=== PATIENT | female | born 1985 | race Caucasian/White ===

== ENCOUNTER → 2022-01-24 | Outpatient (CLI) | payer BC ==
[2022-01-24 14:40] VITALS: BP 124/85; PULSE 114; RESP 16; TEMP 98.2; BMI 29.7
--- NOTE | 2022-01-24 15:02 | P.BASOAP ---
Subjective Progress Note Date: 01/24/22 Principal diagnosis: Morbid obesity 36-year-old female presents for the first time to our clinic. Had [place] [address] Fernández in [place]. Patient says she is not sure how much fluid is in her band. Feels looser lately. Eating more. Has ad dysphagia symptoms to dry meats such as ribs and some vegetables such as broccoli. Patient denies heartburn. [id number] weight was 320. Her lowest weight was 157. Today she is 184. Objective - Vital Signs Vital signs: Vital Signs Temp 98.2 F 01/24/22 14:35 Pulse 114 H 01/24/22 14:35 Resp 16 01/24/22 14:35 BP 124/85 01/24/22 14:35 Pulse Ox FiO2 Intake & Output 01/23/22 01/24/22 01/24/22 18:59 06:59 18:59 Weight 83.518 kg - Exam Abdomen: Soft, nontender, nondistended Assessment/Plan (1) Morbid obesity Narrative/Plan: 36-year-old female here today for LAP-BAND evaluation. Patient would like fluid added to her band. The patient's lap band port was palpated. The site was aseptically prepped. The patient's port was mobile beneath the skin and did not feel sutured to the fascia. It was standing somewhat upright. The skin was localized with lidocaine. The [place] needle was advanced into the port without difficulty. The port was first aspirated for 3 mL of saline. A total of 0.5 ml of fluid was then added for a total of 3.5. Pressure was held and a sterile dressing was applied. Plan: Date: 01/24/22 Initial Weight: 134.717 kg Initial BMI: 47.9 Current Weight: 83.518 kg Current BMI: 29.7 Type of Surgery: Adjustable Gastric Banding Total Volume in Band: 3.5 Previous Volume: 3.0 Volume Removed: Volume Added: 0.5 Band Size:
== END | disposition home or self-care (01) ==
LOC: BARWHC3 13:59
PROVIDERS: ATTEND Surgery
DX: E66.01 Morbid (severe) obesity due to excess calories (principal); Z68.29 Body mass index [BMI] 29.0-29.9, adult
CPT/HCPCS: 99202

== ENCOUNTER → 2022-06-12 | Outpatient (CLI) | payer BC ==
[2022-06-13 00:24] LABS: African American GFR (CKD) 133.7 (60.0-200.0); Albumin 4.4 g/dL (3.8-4.9); Albumin/Globulin Ratio 1.82 (1.60-3.17); Anion Gap 12.3 mmol/L (10.00-18.00); BUN/Creat Ratio 9.15 Ratio (12.00-20.00); Blood Urea Nitrogen 5.4 mg/dL (9.0-27.0); Globulin 2.4 g/dL (1.6-3.3); Non-African American GFR(CKD) 115.4 (60.0-200.0); T4, Free (Free Thyroxine) 1.05 ng/dL (0.800-1.800); Total Bilirubin 1.2 mg/dL (0.30-1.20); Total Protein 6.8 g/dL (6.2-8.2)
== END | disposition home or self-care (01) ==
LOC: LABWHC1 16:10
PROVIDERS: ATTEND Nurse Practitioner Acute Care
DX: G43.909 Migraine, unspecified, not intractable, without status migrainosus (principal); E55.9 Vitamin D deficiency, unspecified; E53.9 Vitamin B deficiency, unspecified; R42 Dizziness and giddiness
CPT/HCPCS: 36415; 80053; 82306; 82607; 84207; 84439; 84443; 84481; 85025

== ENCOUNTER 2023-01-22 16:01 | Observation (INO) | payer BC ==
[2023-01-22] MEDS ORDERED: SODIUM CHLORIDE 0.9% 1,000 ML IV STA (16:47)
[2023-01-22 17:17] LABS: Anisocytosis Slight; HCT 24.8 % (34.0-46.0); Hypochromasia Marked; MCH 13.9 pg (25.0-35.0); MCHC 25.2 g/dL (31.0-37.0); MCV 55.2 fL (80.0-100.0); Mean Platelet Volume 6.7; Microcytosis Marked; Platelet Count 304 k/uL (150-450); RBC 4.49 m/uL (3.80-5.40); RDW 19.5 % (11.5-15.5); WBC 3.8 k/uL (3.8-10.6)
[2023-01-22 17:27] LABS: ALT 12 U/L (4-34); AST 21 U/L (14-36); African American GFR (CKD) >90 (>60 ml/min/1.73 sqM); Albumin 4.3 g/dL (3.5-5.0); Alkaline Phosphatase 57 U/L (38-126); Anion Gap 10 mmol/L; Blood Urea Nitrogen 6 mg/dL (7-17); Calcium 8.9 mg/dL (8.4-10.2); Carbon Dioxide 25 mmol/L (22-30); Chloride 101 mmol/L (98-107); Glucose 96 mg/dL (74-99); Non-African American GFR(CKD) >90 (>60 ml/min/1.73 sqM); Potassium 4.2 mmol/L (3.5-5.1); Sodium 136 mmol/L (137-145); Total Protein 7.1 g/dL (6.3-8.2)
[2023-01-22 17:31] LABS: HGB 6.2 gm/dL (11.4-16.0)
[2023-01-22 18:03] LABS: Eosinophils # (M) 0.19 k/uL (0-0.7); Lymphocytes # (M) 1.44 k/uL (1.0-4.8); Monocytes # (M) 0.19 k/uL (0-1.0); Neutrophils # (M) 1.98 k/uL (1.3-7.7); Neutrophils % (M) 52 %; Nucleated Red Blood Cells 0 /100 WBC (0-0); Total Cells Counted 100
[2023-01-22 18:04] LABS: Ovalocytes Present; Tear Drop Cells Present
--- NOTE | 2023-01-22 18:05 | ED ---
General Adult HPI - General Chief complaint: Recheck/Abnormal Lab/Rx Stated complaint: Abnormal Labs Time Seen by Provider: 01/22/23 16:46 Source: patient Mode of arrival: ambulatory Limitations: no limitations - History of Present Illness Initial comments: Patient is a 37-year-old female presents to the emergency department for abnormal labs. Patient has history of iron deficiency anemia secondary to heavy menstrual cycles. She has history of bariatric surgery therefore takes iron vitamins. Patient had routine blood work drawn at her primary care providers office on 01/18/23. She received a call stating her hemoglobin was 5.5 and instructed to go to the emergency department. Patient is afraid of needles she was too anxious to come in for evaluation. Her family convinced her today and patient came in for evaluation. She is currently asymptomatic no weakness, fatigue, shortness of breath, chest pain, lightheadedness or dizziness. States her menstrual cycle ended 2 days ago. She denies any abnormal bleeding, blood in stool, blood in urine. - Related Data Home Medications Medication Instructions Recorded Confirmed No Known Home Medications 01/24/22 01/24/22 Allergies Allergy/AdvReac Type Severity Reaction Status Date / Time codeine Allergy Vomiting Verified 01/22/23 16:14 Review of Systems ROS Statement: Those systems with pertinent positive or pertinent negative responses have been documented in the HPI. ROS Other: All systems not noted in ROS Statement are negative. Past Medical History Past Medical History: No Reported History History of Any Multi-Drug Resistant Organisms: None Reported Past Surgical History: Appendectomy, Bariatric Surgery Additional Past Surgical History / Comment(s): lap band 2010 Past Anesthesia/Blood Transfusion Reactions: No Reported Reaction Past Psychological History: No Psychological Hx Reported Smoking Status: Never smoker, Unknown if ever smoked General Exam Limitations: no limitations General appearance: alert Head exam: Present: atraumatic, normocephalic, normal inspection Eye exam: Present: normal appearance, PERRL, EOMI. Absent: scleral icterus, conjunctival injection, periorbital swelling Respiratory exam: Present: normal lung sounds bilaterally. Absent: respiratory distress, wheezes, rales, rhonchi, stridor Cardiovascular Exam: Present: regular rate, normal rhythm, normal heart sounds. Absent: systolic murmur, diastolic murmur, rubs, gallop, clicks GI/Abdominal exam: Present: soft, normal bowel sounds. Absent: distended, tenderness, guarding, rebound, rigid Skin exam: Present: warm, dry, intact, pallor. Absent: normal color, rash Course Vital Signs 01/22/23 01/22/23 16:10 17:01 Temperature 98.5 F Pulse Rate 97 79 Respiratory 18 18 Rate Blood Pressure 114/79 109/58 O2 Sat by Pulse 100 100 Oximetry Medical Decision Making - Medical Decision Making Was pt. sent in by a medical professional or institution (FEDERICO Harris, TATTOO AND BODY ARTIST, urgent care, hospital, or longterm...) When possible be specific @ -No Did you speak to anyone other than the patient for history (EMS, parent, family, police, friend...)? What history was obtained from this source @ -No Did you review nursing and triage notes (agree or disagree)? Why? @ -I reviewed and agree with nursing and triage notes Were old charts reviewed (outside hosp., previous admission, EMS record, old EKG, old radiological studies, urgent care reports/EKG's, longterm records)? Report findings @ -No old charts were reviewed Differential Diagnosis (chest pain, altered mental status, abdominal pain women, abdominal pain men, vaginal bleeding, weakness, fever, dyspnea, syncope, headache, dizziness, GI bleed, back pain, seizure, CVA, palpatations, mental health)? @ -acute blood loss, GI bleed, anemia of chronic disease, hemolytic anemia. This list is not meant to be all-inclusive EKG interpreted by me (3pts min.). @ -None X-rays interpreted by me (1pt min.). @ -None done CT interpreted by me (1pt min.). @ -None done U/S interpreted by me (1pt. min.). @ -None done What testing was considered but not performed or refused? (CT, X-rays, U/S, labs)? Why? @ -None What meds were considered but not given or refused? Why? @ -None Did you discuss the management of the patient with other professionals ( professionals i.e. FEDERICO Harris, TATTOO AND BODY ARTIST, lab, RT, psych nurse, director social welfare, senior court office assistant, teacher, armed security officer, trimming caser)? Give summary @ -No Was smoking cessation discussed for >3mins.? @ -No Was critical care preformed (if so, how long)? @ -No Were there social determinants of health that impacted care today? How? (Homelessness, low income, unemployed, alcoholism, drug addiction, transpo rtation, low edu. Level, literacy, decrease access to med. care, senior care, rehab)? @ -No Was there de-escalation of care discussed even if they declined (Discuss DNR or withdrawal of care, Hospice)? DNR status @ -No What co-morbidities impacted this encounter? (DM, HTN, Smoking, COPD, CAD, Cancer, CVA, ARF, Chemo, Hep., AIDS, mental health diagnosis, sleep apnea, morbid obesity)? @ -None Was patient admitted / discharged? Hospital course, mention meds given and route, prescriptions, significant lab abnormalities, going to OR and other pertinent info. @ - Admitted. Hemoglobin is 6.2 patient will receive one unit of blood and stay for observation Dr. Amato accepts Undiagnosed new problem with uncertain prognosis? @ -No Drug Therapy requiring intensive monitoring for toxicity (Heparin, Nitro, Insulin, Cardizem)? @ -No Were any procedures done? @ -No Diagnosis/symptom? @ -anemia Acute, or Chronic, or Acute on Chronic? @ -acute Uncomplicated (without systemic symptoms) or Complicated (systemic symptoms)? @ -uncomplicated Side effects of treatment? @ -No Exacerbation, Progression, or Severe Exacerbation? @ -No Poses a threat to life or bodily function? How? (Chest pain, USA, CT, pneumonia, PE, COPD, DKA, ARF, appy, cholecystitis, CVA, Diverticulitis, Homicidal, Suicidal, threat to staff... and all critical care pts) @ -Yes Dr. Montoya is my attending - Lab Data Result diagrams: 01/22/23 16:58 01/22/23 16:58 Lab Results 01/22/23 01/22/23 Range/Units 16:58 16:58 WBC 3.8 (3.8-10.6) k/uL RBC 4.49 (3.80-5.40) m/uL Hgb 6.2 L* (11.4-16.0) gm/dL Hct 24.8 L (34.0-46.0) % MCV 55.2 L (80.0-100.0) fL MCH 13.9 L (25.0-35.0) pg MCHC 25.2 L (31.0-37.0) g/dL RDW 19.5 H (11.5-15.5) % Plt Count 304 (150-450) k/uL MPV 6.7 Hypochromasia Marked Anisocytosis Slight Microcytosis Marked Sodium 136 L (137-145) mmol/L Potassium 4.2 (3.5-5.1) mmol/L Chloride 101 (98-107) mmol/L Carbon Dioxide 25 (22-30) mmol/L Anion Gap 10 mmol/L BUN 6 L (7-17) mg/dL Creatinine 0.54 (0.52-1.04) mg/dL Est GFR (CKD-EPI)AfAm >90 (>60 ml/min/1.73 sqM) Est GFR (CKD-EPI)NonAf >90 (>60 ml/min/1.73 sqM) Glucose 96 (74-99) mg/dL Calcium 8.9 (8.4-10.2) mg/dL Total Bilirubin 1.0 (0.2-1.3) mg/dL AST 21 (14-36) U/L ALT 12 (4-34) U/L Alkaline Phosphatase 57 (38-126) U/L Total Protein 7.1 (6.3-8.2) g/dL Albumin 4.3 (3.5-5.0) g/dL Disposition Clinical Impression: Anemia Disposition: ADMITTED IP TO THIS [facility] Condition: Stable Referrals: Deisy Stephenson MD [Primary Care Provider] - 1-2 days
[2023-01-22 18:31] LABS: Appearance,Urine Clear (Clear); Bilirubin,Urine Negative (Negative); Blood,Urine Trace (Negative); Color,Urine Colorless; Glucose,Urine (UA) Negative (Negative); Ketones,Urine Negative (Negative); Leukocyte Esterase,Urine Moderate (Negative); Nitrite,Urine Negative (Negative); PH, Urine 5.5 (5.0-8.0); Protein,Urine Negative (Negative); RBC,Urine 1 /hpf (0-5); Specific Gravity,Urine 1.002 (1.001-1.035); Squamous Epithelial Cell,Urine 5 /hpf (0-4); Urobilinogen,Urine <2.0 mg/dL (<2.0); WBC,Urine 4 /hpf (0-5)
[2023-01-22] MEDS: SODIUM CHLORIDE 0.9% 1,000 ML IV SCH (19:03)
[2023-01-23 06:23] LABS: Anisocytosis Moderate; Basophils % (A) 1 %; Eosinophils # (A) 0.1 k/uL (0-0.7); Eosinophils % (A) 4 %; HCT 22.4 % (34.0-46.0); Hypochromasia Marked; Lymphocytes # (A) 1.2 k/uL (1.0-4.8); Lymphocytes % (A) 49 %; MCH 15.3 pg (25.0-35.0); MCHC 26.9 g/dL (31.0-37.0); MCV 56.9 fL (80.0-100.0); Mean Platelet Volume 6.8; Microcytosis Marked; Monocytes # (A) 0.2 k/uL (0-1.0); Monocytes % (A) 8 %; Neutrophils # (A) 0.9 k/uL (1.3-7.7); Neutrophils % (A) 36 %; Platelet Count 215 k/uL (150-450); Poikilocytosis Slight; RBC 3.93 m/uL (3.80-5.40); RDW 20.9 % (11.5-15.5); WBC 2.5 k/uL (3.8-10.6)
[2023-01-23] MEDS: SODIUM CHLORIDE 0.9% 1,000 ML IV SCH ×2 (06:46→20:24)
--- NOTE | 2023-01-23 16:27 | US ---
EXAMINATION TYPE: US pelvic complete DATE OF EXAM: 01/23/2023 COMPARISON: NONE CLINICAL INDICATION: Female, 37 years old with history of vaginal bleeding; anemia, has heavy periods , G0, virgin TECHNIQUE: TA. Transabdominal sonographic images of the pelvis were acquired. Patient delcined T V due to virgin status Date of LMP: 1 week ago EXAM MEASUREMENTS: Uterus: 8.4 x 4.9 x 3.9 cm Endometrial Stripe: 1.0 cm Right Ovary: 3.8 x 1.9 x 1.4 cm Left Ovary: 3.4 x 3.5 x 1.6 cm 1. Uterus: Anteverted wnl 2. Endometrium: wnl 3. Right Ovary: wnl 4. Left Ovary: 1.3 x 1.7 x 1.4cm follicle seen 5. Bilateral Adnexa: wnl 6. Posterior cul-de-sac: wnl IMPRESSION: 1. No evidence for acute process. 2. Endometrium is within normal limits for thickness.
[2023-01-23 16:56] LABS: Anisocytosis Marked; Basophils % (A) 1 %; Eosinophils # (A) 0.1 k/uL (0-0.7); Eosinophils % (A) 2 %; HCT 26.5 % (34.0-46.0); Hypochromasia Marked; Lymphocytes # (A) 0.8 k/uL (1.0-4.8); Lymphocytes % (A) 29 %; MCH 16.9 pg (25.0-35.0); MCHC 28.2 g/dL (31.0-37.0); MCV 59.8 fL (80.0-100.0); Mean Platelet Volume 7.9; Microcytosis Marked; Monocytes # (A) 0.2 k/uL (0-1.0); Monocytes % (A) 9 %; Neutrophils # (A) 1.6 k/uL (1.3-7.7); Neutrophils % (A) 59 %; Platelet Count 196 k/uL (150-450); Poikilocytosis Marked; RBC 4.43 m/uL (3.80-5.40); RDW 24.7 % (11.5-15.5); WBC 2.8 k/uL (3.8-10.6)
[2023-01-23 16:57] LABS: HGB 7.5 gm/dL (11.4-16.0)
[2023-01-24] MEDS: LEVOTHYROXINE 112 MCG TAB PO SCH (06:27)
[2023-01-24] MEDS: MULTIVITAMINS, THERA 1 EACH TAB PO SCH (08:37)
[2023-01-24 11:10] LABS: Anisocytosis Marked; Basophils % (A) 1 %; Eosinophils # (A) 0.1 k/uL (0-0.7); Eosinophils % (A) 3 %; HCT 28.5 % (34.0-46.0); HGB 7.7 gm/dL (11.4-16.0); Hypochromasia Marked; Lymphocytes # (A) 0.6 k/uL (1.0-4.8); Lymphocytes % (A) 27 %; MCH 16.7 pg (25.0-35.0); MCHC 27.1 g/dL (31.0-37.0); MCV 61.5 fL (80.0-100.0); Microcytosis Marked; Monocytes # (A) 0.2 k/uL (0-1.0); Monocytes % (A) 10 %; Neutrophils # (A) 1.3 k/uL (1.3-7.7); Neutrophils % (A) 57 %; Platelet Count 194 k/uL (150-450); Poikilocytosis Moderate; RBC 4.62 m/uL (3.80-5.40); RDW 24.7 % (11.5-15.5); WBC 2.3 k/uL (3.8-10.6)
[2023-01-24 11:23] LABS: ALT 8 U/L (4-34); AST 36 U/L (14-36); African American GFR (CKD) >90 (>60 ml/min/1.73 sqM); Albumin 3.6 g/dL (3.5-5.0); Albumin/Globulin Ratio 1.4; Alkaline Phosphatase 60 U/L (38-126); Anion Gap 6 mmol/L; Blood Urea Nitrogen 5 mg/dL (7-17); Calcium 8.5 mg/dL (8.4-10.2); Carbon Dioxide 27 mmol/L (22-30); Chloride 105 mmol/L (98-107); Globulin 2.5 g/dL; Glucose 93 mg/dL (74-99); Non-African American GFR(CKD) >90 (>60 ml/min/1.73 sqM); Potassium 3.6 mmol/L (3.5-5.1); Sodium 138 mmol/L (137-145); Total Bilirubin 1.4 mg/dL (0.2-1.3); Total Protein 6.1 g/dL (6.3-8.2)
--- NOTE | 2023-01-24 12:19 | P.HPIM ---
History of Present Illness H&P Date: 01/23/23 Amee Marroquin, is a 37-year-old female who presented to [facility] emergency room with a chief complaint of low hemoglobin. Patient reportedly was told by her PCP that her hemoglobin was 5.5 the patient was hesitant to come to the ER initially due to fear of needles. Patient received phone call again from PCP urging her to go the ER. Patient reports the family finally convinced her to come in for further evaluation patient reports that she has very heavy menstrual cycles lasting for 1 week that just ended 2 days ago. Patient denies any further episodes of bleeding. Patient denies any dark stools or bloody emesis. Patient denies use of anticoagulation. Patient reports she has not seen an GYNECOLOGY TEACHER in many years due to fear and her Asperger's. Patient does have a pet medical history of bariatric surgery, appendectomy and Asperger's. She was evaluated in the emergency room vital examination on presentation revealed temp 98.1, heart rate 77, respiratory 18 blood pressure 111/75 and pulse ox of 100% on room air Laboratory data reveals hemoglobin 6.2. Testing in the emergency room revealed pelvis ultrasonically showing no evidence for acute process endometrium is within normal limits for thickness. Patient was admitted to medical floor for further evaluation and treatment. Hematology services Consulted at this time. 2 units of PRBCs ordered. Repeat labs ordered. Review of Systems Please refer to HPI otherwise unremarkable Past Medical History Past Medical History: No Reported History History of Any Multi-Drug Resistant Organisms: None Reported Past Surgical History: Appendectomy, Bariatric Surgery Additional Past Surgical History / Comment(s): lap band 2010 Past Anesthesia/Blood Transfusion Reactions: No Reported Reaction Past Psychological History: No Psychological Hx Reported Smoking Status: Never smoker, Unknown if ever smoked Past Alcohol Use History: None Reported Past Drug Use History: None Reported Medications and Allergies Home Medications Medication Instructions Recorded Confirmed Type Levothyroxine Sodium [Synthroid] 112 mcg PO DAILY 01/22/23 01/22/23 History Pediatric Multivit No.203/Iron 18 mg PO DAILY 01/22/23 01/22/23 History [Flintstones with Iron Tab Chew] Allergies Allergy/AdvReac Type Severity Reaction Status Date / Time codeine Allergy Vomiting Verified 01/22/23 18:27 Physical Exam Vitals: Vital Signs Temp Pulse Pulse Resp BP BP Pulse Ox 01/23/23 07:00 97.8 F 68 16 103/68 99 01/23/23 00:41 97.7 F 78 16 100/64 100 01/22/23 23:50 97.7 F 78 16 100/64 01/22/23 22:02 98.1 F 67 17 109/69 100 01/22/23 20:58 98.3 F 76 18 102/59 100 01/22/23 20:38 98.1 F 73 20 107/70 100 01/22/23 20:29 97.3 F L 67 20 115/64 100 01/22/23 17:01 79 18 109/58 100 01/22/23 16:10 98.5 F 97 18 114/79 100 Intake and Output 01/22/23 01/23/23 01/23/23 22:59 06:59 14:59 Intake Total 0 285 Balance 0 285 Intake: Blood Product 0 285 Rc Pheresis As-3 Unit 0 285 [id number] Other: # Voids 1 2 Weight 79.379 kg In general patient is alert and oriented x 3 in no distress HEENT head normocephalic and atraumatic Neck is supple no JVD no goiter no lymphadenopathy no carotid bruit Chest examination is clear to auscultation no crackles no wheezing Cardiac exam reveals regular heart sounds S1 and S2 no gallops no murmurs Abdomen is soft nontender no organomegaly with normal bowel sounds Extremity exam reveals no edema no cyanosis or clubbing Neurological examination reveals no gross focal deficits Results CBC & Chem 7: 01/24/23 09:21 01/24/23 09:21 Labs: Abnormal Lab Results - Last 24 Hours (Table) 01/22/23 01/22/23 01/22/23 Range/Units 16:55 16:58 16:58 WBC (3.8-10.6) k/uL Hgb 6.2 L* (11.4-16.0) gm/dL Hct 24.8 L (34.0-46.0) % MCV 55.2 L (80.0-100.0) fL MCH 13.9 L (25.0-35.0) pg MCHC 25.2 L (31.0-37.0) g/dL RDW 19.5 H (11.5-15.5) % Neutrophils # (1.3-7.7) k/uL Sodium (137-145) mmol/L BUN (7-17) mg/dL Urine Blood Trace H (Negative) Ur Leukocyte Esterase Moderate H (Negative) Ur Squamous Epith Cells 5 H (0-4) /hpf Crossmatch See Detail 01/22/23 01/23/23 Range/Units 16:58 05:12 WBC 2.5 L (3.8-10.6) k/uL Hgb 6.0 L* (11.4-16.0) gm/dL Hct 22.4 L (34.0-46.0) % MCV 56.9 L (80.0-100.0) fL MCH 15.3 L (25.0-35.0) pg MCHC 26.9 L (31.0-37.0) g/dL RDW 20.9 H (11.5-15.5) % Neutrophils # 0.9 L (1.3-7.7) k/uL Sodium 136 L (137-145) mmol/L BUN 6 L (7-17) mg/dL Urine Blood (Negative) Ur Leukocyte Esterase (Negative) Ur Squamous Epith Cells (0-4) /hpf Crossmatch Thrombosis Risk Factor Assmnt - Choose All That Apply Any of the Below Risk Factors Present?: Yes Each Factor Represents 1 point: Obesity (BMI >25) Other Risk Factors: No Other congenital or acquired thrombophilia - If yes, enter type in comment: No Thrombosis Risk Factor Assessment Total Risk Factor Score: 1 Thrombosis Risk Factor Assessment Level: Low Risk Assessment and Plan Assessment: 1. Anemia. Hemoglobin 6.2 units of PRBCs ordered 2. History of heavy menstrual cycles. Patient stated she completed cycles 3 days ago 3. History of bariatric surgery 4. History of appendectomy 5. History of Asperger's 6. Hypothyroidism. DVT prophylaxis SCDs. GI prophylaxis Protonix Hematology service is consulted 2 units of PRBCs ordered Repeat labs ordered Time with Patient: Greater than 30 (Greater than 60% of the total time spent in counseling and coordination of care)
--- NOTE | 2023-01-24 12:20 | P.CONS ---
History of Present Illness - Reason for Consult Consult date: 01/24/23 anemia Requesting physician: Noman Monsivais - Chief Complaint anemia - History of Present Illness Patient is a 37-year-old female with a significant history of iron deficiency anemia and lap band surgery in 2010. We were consulted for anemia. Patient was having routine blood work at her PCP and was found to have a low hemoglobin at which time was instructed to go to the ER for further evaluation. Upon admission patient's hemoglobin was 6.2. S/P 2 units PRBCs. Hemoglobin 7.5 today. CBC is consistent with microcytic hypochromic anemia. Patient reports feeling well overall. Denies dizziness, palpitations, and shortness of breath. Reporting some fatigue but reports this is not unusual for her. Of note patient has a history of iron deficiency anemia r/t menstruation and takes daily vitamins for this. Patient reports she is unable to tolerate oral iron but ta kes 2 daily multivitamins. Patient denies any episodes of bleeding. Denies abdominal pain, nausea vomiting and diarrhea. Denies fever and chills. Review of Systems 10 point ROS is negative except as stated in the HPI Past Medical History Past Medical History: No Reported History History of Any Multi-Drug Resistant Organisms: None Reported Past Surgical History: Appendectomy, Bariatric Surgery Additional Past Surgical History / Comment(s): lap band 2010 Past Anesthesia/Blood Transfusion Reactions: No Reported Reaction Past Psychological History: No Psychological Hx Reported Smoking Status: Never smoker, Unknown if ever smoked Past Alcohol Use History: None Reported Past Drug Use History: None Reported Medications and Allergies Home Medications Medication Instructions Recorded Confirmed Type Levothyroxine Sodium [Synthroid] 112 mcg PO DAILY 01/22/23 01/22/23 History Pediatric Multivit No.203/Iron 18 mg PO DAILY 01/22/23 01/22/23 History [Flintstones with Iron Tab Chew] Allergies Allergy/AdvReac Type Severity Reaction Status Date / Time codeine Allergy Vomiting Verified 01/22/23 18:27 Physical Exam Vitals: Vital Signs Temp Pulse Pulse Resp BP BP Pulse Ox 01/24/23 07:00 97.6 F 68 16 97/67 100 01/24/23 02:00 98.2 F 65 15 102/64 95 01/23/23 14:15 98.1 F 79 16 111/75 99 Intake and Output 01/23/23 01/24/2323 22:59 06:59 14:59 Intake Total 118 Balance 118 Intake: Oral 118 Other: # Voids 1 2 - Constitutional General appearance: average body habitus, no acute distress - EENT Eyes: anicteric sclerae, EOMI ENT: hearing grossly normal - Respiratory Respiratory: bilateral: CTA - Cardiovascular Rhythm: regular Heart sounds: normal: S1, S2 Abnormal Heart Sounds: no systolic murmur, no diastolic murmur, no rub, no S3 Gallop, no S4 Gallop, no click, no other - Integumentary Integumentary: pale - Neurologic Neurologic: CNII-XII intact - Musculoskeletal Musculoskeletal: strength equal bilaterally - Psychiatric Psychiatric: A&O x's 3, appropriate affect, intact judgment & insight Results CBC & Chem 7: 01/24/23 09:21 01/24/23 09:21 Labs: Abnormal Lab Results - Last 24 Hours (Table) 01/22/23 01/23/23 01/24/23 Range/Units 16:55 16:35 09:21 WBC 2.8 L (3.8-10.6) k/uL Hgb 7.5 L D (11.4-16.0) gm/dL Hct 26.5 L (34.0-46.0) % MCV 59.8 L (80.0-100.0) fL MCH 16.9 L (25.0-35.0) pg MCHC 28.2 L (31.0-37.0) g/dL RDW 24.7 H (11.5-15.5) % Lymphocytes # 0.8 L (1.0-4.8) k/uL BUN 5 L (7-17) mg/dL Creatinine 0.48 L (0.52-1.04) mg/dL Total Bilirubin 1.4 H (0.2-1.3) mg/dL Total Protein 6.1 L (6.3-8.2) g/dL Crossmatch See Detail 01/24/23 Range/Units 09:21 WBC 2.3 L (3.8-10.6) k/uL Hgb 7.7 L (11.4-16.0) gm/dL Hct 28.5 L (34.0-46.0) % MCV 61.5 L (80.0-100.0) fL MCH 16.7 L (25.0-35.0) pg MCHC 27.1 L (31.0-37.0) g/dL RDW 24.7 H (11.5-15.5) % Lymphocytes # 0.6 L (1.0-4.8) k/uL BUN (7-17) mg/dL Creatinine (0.52-1.04) mg/dL Total Bilirubin (0.2-1.3) mg/dL Total Protein (6.3-8.2) g/dL Crossmatch Assessment and Plan (1) Anemia Current Visit: Yes Status: Acute Priority: High Code(s): D64.9 - ANEMIA, UNSPECIFIED SNOMED Code(s): 874926180 Plan: Microcytic hypochromic anemia: -Significant history of iron deficiency anemia and lap band surgery in 2010. Upon admission patient's hemoglobin was 6.2. S/P 2 units PRBCs. Hemoglobin 7.5 today. CBC is consistent with microcytic hypochromic anemia. -Anemia workup ordered. Will add parenteral iron if labs consistent with WESLEY -Hx of anemia r/t menstruation. Patient is not able to tolerate oral iron supplementation. Denies any episodes of bleeding or melena. Anemia likely related to anemia secondary to menstruation and hx of lap band and poor iron absorption. -Will continue to monitor counts. Please transfuse for hemoglobin less than 7 -Recommend clinic f/u for repeat iron studies and continued observation of CBC/iron attests: I performed H&P and developed impression and plan of care for patient, discussed with dictator. I agree with dictated note, documented as a scribe
--- NOTE | 2023-01-24 12:21 | P.PN ---
Subjective Progress Note Date: 01/24/23 Amee Marroquin, is a 37-year-old female who presented to [facility] emergency room with a chief complaint of low hemoglobin. Patient reportedly was told by her PCP that her hemoglobin was 5.5 the patient was hesitant to come to the ER initially due to fear of needles. Patient received phone call again from PCP urging her to go the ER. Patient reports the family finally convinced her to come in for further evaluation patient reports that she has very heavy menstrual cycles lasting for 1 week that just ended 2 days ago. Patient denies any further episodes of bleeding. Patient denies any dark stools or bloody emesis. Patient denies use of anticoagulation. Patient reports she has not seen an SUPERVISOR BRINE in many years due to fear and her Asperger's. Patient does have a pet medical history of bariatric surgery, appendectomy and Asperger's. She was evaluated in the emergency room vital examination on presentation revealed temp 98.1, heart rate 77, respiratory 18 blood pressure 111/75 and pulse ox of 100% on room air Laboratory data reveals hemoglobin 6.2. Testing in the emergency room revealed pelvis ultrasonically showing no evidence for acute process endometrium is within normal limits for thickness. Patient was admitted to medical floor for further evaluation and treatment. Hematology services Consulted at this time. 2 units of PRBCs ordered. Repeat labs ordered. 01/24/2023 patient is alert and oriented 3. Hemoglobin this a.m. 7.7. Awaiting hematology input. This time patient denies chest pain or shortness of breath. Patient denies nausea vomiting or diarrhea. Patient denies any urinary burning or frequency. Objective - Vital Signs Vital signs: Vital Signs Temp 97.6 F 01/24/23 07:00 Pulse 68 01/24/23 07:00 Resp 16 01/24/23 07:00 BP 97/67 01/24/23 07:00 Pulse Ox 100 01/24/23 07:00 FiO2 Intake & Output 01/23/23 01/24/23 01/24/23 18:59 06:59 18:59 Intake Total 510 118 Balance 510 118 Intake: Oral 200 118 Blood Product 310 Rc As-1 Unit 310 [id number] Other: # Voids 2 2 - Exam In general patient is alert and oriented x 3 in no distress HEENT head normocephalic and atraumatic Neck is supple no JVD no goiter no lymphadenopathy no carotid bruit Chest examination is clear to auscultation no crackles no wheezing Cardiac exam reveals regular heart sounds S1 and S2 no gallops no murmurs Abdomen is soft nontender no organomegaly with normal bowel sounds Extremity exam reveals no edema no cyanosis or clubbing Neurological examination reveals no gross focal deficits - Labs CBC & Chem 7: 01/24/23 09:21 01/24/23 09:21 Labs: Abnormal Lab Results - Last 24 Hours (Table) 01/22/23 01/23/23 01/24/23 Range/Units 16:55 16:35 09:21 WBC 2.8 L (3.8-10.6) k/uL Hgb 7.5 L D (11.4-16.0) gm/dL Hct 26.5 L (34.0-46.0) % MCV 59.8 L (80.0-100.0) fL MCH 16.9 L (25.0-35.0) pg MCHC 28.2 L (31.0-37.0) g/dL RDW 24.7 H (11.5-15.5) % Lymphocytes # 0.8 L (1.0-4.8) k/uL BUN 5 L (7-17) mg/dL Creatinine 0.48 L (0.52-1.04) mg/dL Total Bilirubin 1.4 H (0.2-1.3) mg/dL Total Protein 6.1 L (6.3-8.2) g/dL Crossmatch See Detail 01/24/23 Range/Units 09:21 WBC 2.3 L (3.8-10.6) k/uL Hgb 7.7 L (11.4-16.0) gm/dL Hct 28.5 L (34.0-46.0) % MCV 61.5 L (80.0-100.0) fL MCH 16.7 L (25.0-35.0) pg MCHC 27.1 L (31.0-37.0) g/dL RDW 24.7 H (11.5-15.5) % Lymphocytes # 0.6 L (1.0-4.8) k/uL BUN (7-17) mg/dL Creatinine (0.52-1.04) mg/dL Total Bilirubin (0.2-1.3) mg/dL Total Protein (6.3-8.2) g/dL Crossmatch Assessment and Plan Assessment: 1. Anemia. Hemoglobin 6.2 units of PRBCs ordered 2. History of heavy menstrual cycles. Patient stated she completed cycles 3 days ago 3. History of bariatric surgery 4. History of appendectomy 5. History of Asperger's 6. Hypothyroidism. DVT prophylaxis SCDs. GI prophylaxis Protonix Hematology service is consulted 2 units of PRBCs transfused Repeat labs ordered
[2023-01-24] MEDS: SODIUM CHLORIDE 0.9% 1,000 ML IV SCH (12:29)
[2023-01-24 23:24] LABS: % Iron Saturation 2.76 (12.00-45.00); Ferritin 6.7 ng/mL (10.0-291.0); Iron 12 UG/DL (50-170); Total Iron Binding Capacity 435 UG/DL (228-460)
[2023-01-25] MEDS: LEVOTHYROXINE 112 MCG TAB PO SCH (05:54)
[2023-01-25 06:51] LABS: Anisocytosis Marked; Basophils % (A) 1 %; Eosinophils # (A) 0.1 k/uL (0-0.7); Eosinophils % (A) 3 %; HGB 7.6 gm/dL (11.4-16.0); Hypochromasia Marked; Lymphocytes # (A) 1.1 k/uL (1.0-4.8); Lymphocytes % (A) 41 %; MCH 16.5 pg (25.0-35.0); MCHC 27.2 g/dL (31.0-37.0); MCV 60.7 fL (80.0-100.0); Microcytosis Marked; Monocytes # (A) 0.3 k/uL (0-1.0); Monocytes % (A) 10 %; Neutrophils # (A) 1.2 k/uL (1.3-7.7); Neutrophils % (A) 43 %; Platelet Count 164 k/uL (150-450); Poikilocytosis Moderate; RBC 4.62 m/uL (3.80-5.40); WBC 2.7 k/uL (3.8-10.6)
[2023-01-25 07:01] LABS: RDW 25.4 % (11.5-15.5)
[2023-01-25] MEDS ORDERED: PANTOPRAZOLE 40 MG TABLET PO SCH (07:30)
[2023-01-25 08:14] VITALS: BP 109/71; PULSE 68; RESP 16; TEMP 97.9
[2023-01-25] MEDS ORDERED: SODIUM FERRIC GLUCONAT-SUCROSE 125 MG in SODIUM CHLORIDE 0.9% 100 ML IVPB ONE (10:00)
[2023-01-25] MEDS: MULTIVITAMINS, THERA 1 EACH TAB PO SCH (10:54)
--- NOTE | 2023-01-25 13:31 | P.DS ---
Providers Date of admission: 01/22/23 20:13 Expected date of discharge: 01/25/23 Attending physician: Noman Monsivais Consults: 01/23/23 13:54 Consult Physician Routine Consulting Provider: Sp Zafar Consult Reason/Comments: anemia Do you want consulting provider notified?: Yes Primary care physician: Deisy Stephenson [facility] Hospital Course: Diagnosis on discharge: 1. Anemia. Hemoglobin 6.2 units of PRBCs ordered 2. History of heavy menstrual cycles. Patient stated she completed cycles 3 days ago 3. History of bariatric surgery 4. History of appendectomy 5. History of Asperger's 6. Hypothyroidism. Hospital course: Amee Marroquin, is a 37-year-old female who presented to [facility] emergency room with a chief complaint of low hemoglobin. Patient reportedly was told by her PCP that her hemoglobin was 5.5 the patient was hesitant to come to the ER initially due to fear of needles. Patient received phone call again from PCP urging her to go the ER. Patient reports the family finally convinced her to come in for further evaluation patient reports that she has very heavy menstrual cycles lasting for 1 week that just ended 2 days ago. Patient denies any further episodes of bleeding. Patient denies any dark stools or bloody emesis. Patient denies use of anticoagulation. Patient reports she has not seen an TAX ASSESSOR in many years due to fear and her Asperger's. Patient does have a pet medical history of bariatric surgery, appendectomy and Asperger's. She was evaluated in the emergency room vital examination on presentation revealed temp 98.1, heart rate 77, respiratory 18 blood pressure 111/75 and pulse ox of 100% on room air Laboratory data reveals hemoglobin 6.2. Testing in the emergency room revealed pelvis ultrasonically showing no evidence for acute process endometrium is within normal limits for thickness. Patient was admitted to medical floor for further evaluation and treatment. Hematology services Consulted at this time. 2 units of PRBCs ordered. Repeat labs ordered. 01/24/2023 patient is alert and oriented 3. Hemoglobin this a.m. 7.7. Awaiting hematology input. This time patient denies chest pain or shortness of breath. Patient denies nausea vomiting or diarrhea. Patient denies any urinary burning or frequency. On 01/25/2023 patient was seen and examined on the medical floor she is alert and oriented 3 in no apparent distress she is feeling better hemoglobin today is 7.6 patient received 2 units of red blood cell transfusions during this a dmission today she was also given IV iron. She is feeling well she will be discharged to home today she was instructed to continue taking iron supplements she will follow-up with her primary care physician Dr. Stephenson in one week patient was also instructed to follow-up with hematology and with gynecology to assess reason for excessive menstrual bleeding. Patient Condition at Discharge: Stable Plan - Discharge Summary New Discharge Prescriptions: Continue Levothyroxine Sodium [Synthroid] 112 mcg PO DAILY Pediatric Multivit No.203/Iron [Flintstones with Iron Tab Chew] 18 mg PO DAILY Discharge Medication List Levothyroxine Sodium [Synthroid] 112 mcg PO DAILY 01/22/23 [History] Pediatric Multivit No.203/Iron [Flintstones with Iron Tab Chew] 18 mg PO DAILY 01/22/23 [History] Follow up Appointment(s)/Referral(s): Deisy Stephenson MD [Primary Care Provider] - 1-2 days
[2023-01-26] MEDS ORDERED: SODIUM FERRIC GLUCONAT-SUCROSE 125 MG in SODIUM CHLORIDE 0.9% 100 ML IVPB SCH (09:00)
[2023-01-26 12:07] LABS: Methylmalonic Acid 0.3 umol/L (<0.40)
== END 2023-01-25 14:35 | disposition home or self-care (01) ==
LOC: EC 16:01 → 6NMEDSUR 20:13
PROVIDERS: ADMIT Internal Medicine; ATTEND Internal Medicine
DX: D50.9 Iron deficiency anemia, unspecified (principal); F84.5 Asperger's syndrome; E03.9 Hypothyroidism, unspecified; Z90.49 Acquired absence of other specified parts of digestive tract; Z79.890 Hormone replacement therapy; Z98.84 Bariatric surgery status; Z88.5 Allergy status to narcotic agent
CPT/HCPCS: 36430 ×2; 96361 ×3; 96365; 99283; 36415; 86900; 86901; 83921; 80053 ×2; 82607; 82728; 82525; 82746; 83540; 83550; 85025 ×4; 86850; 86920; 81001; 81025; 76856; G0378 ×4; P9016 ×2; J2916

== ENCOUNTER → 2023-07-10 | Outpatient (CLI) | payer BC ==
--- NOTE | 2023-07-10 15:56 | P.BASOAP ---
Subjective Progress Note Date: 07/10/23 Principal diagnosis: Morbid obesity Patient returns for recheck. She was last seen 1.5 years ago. Fluid was added at the time. Weight went from 184 down to 165. Since then she has gained 15 pounds. She would like more fluid added. Denies dysphagia, no vomiting, no GERD, no night cough. Objective - Exam Abdomen: Soft, nontender, nondistended Assessment/Plan (1) Morbid obesity Narrative/Plan: Patient requesting more fluid to be added to the band. We'll proceed with band adjustment. The patient's lap band port was palpated. The site was aseptically prepped. The Medina needle was advanced into the port. A total of 0.3 ml of fluid was added for a total of 3.8 mL. Pressure was held and a sterile dressing was applied. Plan: Date: Initial Weight: 134.717 kg Initial BMI: Current Weight: Current BMI: Type of Surgery: Total Volume in Band: 3.5 Previous Volume: Volume Removed: Volume Added: Band Size:
[2023-07-10 16:13] VITALS: BP 151/90; PULSE 78; RESP 16; TEMP 98; BMI 29.0
== END ==
LOC: BARWHC3 15:16
PROVIDERS: ATTEND Surgery
DX: E66.01 Morbid (severe) obesity due to excess calories (principal); Z88.5 Allergy status to narcotic agent
CPT/HCPCS: 99212

== ENCOUNTER → 2023-07-31 | Outpatient (CLI) | payer BC ==
--- NOTE | 2023-08-01 13:05 | MM ---
Reason for Exam: Screening (asymptomatic). Baseline mammogram. Patient History: Menarche at age 9. Patient has no children. Premenopausal. Last menstrual period: 07/07/2023 Risk Values: Brigida 5 year model risk: 0.7%. NCI Lifetime model risk: 12.1%. Prior Study Comparison: Patient's first Mammogram. Tissue Density: There are scattered fibroglandular densities. Findings: Analyzed By CAD. Right breast There is no suspicious group of microcalcifications or new suspicious mass. Asymmetry of the left breast on CC view 6.1 cm from nipple measuring 8 mm and posterior nipple line on MLO view. Overall Assessment: Incomplete: need additional imaging evaluation, BI-RAD 0 Management: Diagnostic Mammogram of the left breast. [facility] will attempt to contact patient to return for supplemental views and ultrasound if indicated. Patient should continue monthly self-breast exams. A clinical breast exam by your physician is recommended on an annual basis. This exam should not preclude additional follow-up of suspicious palpable abnormalities. Note on Brigida scores and lifetime risk: 1. A Brigida score greater than 3% is considered moderate risk. If this is the case, consider specialist referral to assess eligibility for a risk reducing agent. 2. If overall lifetime risk for the development of breast cancer is 20% or higher, the patient may qualify for future screening with alternating mammogram and breast MRI. Electronically signed and approved by: Tadeo Moore DO
== END | disposition home or self-care (01) ==
LOC: RADMAMWWP 14:25
PROVIDERS: ATTEND Obstetrics & Gynecology
DX: Z12.31 Encounter for screening mammogram for malignant neoplasm of breast (principal)
CPT/HCPCS: 77067

== ENCOUNTER → 2023-08-20 | Outpatient (CLI) | payer BC ==
--- NOTE | 2023-08-20 13:50 | MM ---
Reason for Exam: Additional evaluation requested from abnormal screening. Last screening mammogram was performed less than 1 month ago. Patient History: Menarche at age 9. Patient has no children. Premenopausal. Risk Values: Brigida 5 year model risk: 0.7%. NCI Lifetime model risk: 12.1%. Prior Study Comparison: 07/31/2023 Bilateral MG screening mammo w CAD, [facility]. Tissue Density: Left: There are scattered fibroglandular densities. Findings: Analyzed By CAD. Focal asymmetry approximately 8:00 position, middle depth, incompletely disperses on additional views. Further ultrasound evaluation recommended. Overall Assessment: Incomplete: need additional imaging evaluation, BI-RAD 0 Management: Diagnostic Breast Ultrasound of the left breast. 7:00 to 10:00. Electronically signed and approved by: Eduardo Saravia M.D. Radiologist
--- NOTE | 2023-08-20 14:46 | USB ---
Reason for Exam: Additional evaluation requested from abnormal screening. Patient History: Menarche at age 9. Patient has no children. Premenopausal. Risk Values: Brigida 5 year model risk: 0.7%. NCI Lifetime model risk: 12.1%. Technique: Method: Targeted. Prior Study Comparison: 07/31/2023 Bilateral MG screening mammo w JULISA, [facility]. Findings: The medial section of the breast of the left breast, the axilla of the left breast and the retroareolar of the left breast were scanned. Targeted ultrasound left breast from the 7:00 to 10:00 position including scanning of the subareolar region and axilla. No solid or cystic lesion or axillary lymphadenopathy is seen.. Overall Assessment: Probably benign, BI-RAD 3 Management: Diagnostic Mammogram of the left breast in 6 months. A clinical breast exam by your physician is recommended on an annual basis and results should be correlated with mammographic findings. This exam should not preclude additional follow-up of suspicious palpable abnormalities. Results were given to the patient verbally at the time of exam. Electronically signed and approved by: Eduardo Saravia M.D. Radiologist
== END | disposition home or self-care (01) ==
LOC: RADMAMWWP 13:22
PROVIDERS: ATTEND Obstetrics & Gynecology
DX: R92.322 Mammographic fibroglandular density, left breast (principal)
CPT/HCPCS: 77061; 77065

== ENCOUNTER → 2024-09-29 | Day surgery (SDC) | payer BC ==
--- NOTE | 2024-10-03 08:53 | MM ---
Reason for Exam: Post Procedure Mammogram. Last screening mammogram was performed less than 1 month ago. Patient History: Menarche at age 9. Patient has no children. Premenopausal. Hormonal Contraceptives for 6 months. Risk Values: Brigida 5 year model risk: 0.7%. NCI Lifetime model risk: 12.0%. Prior Study Comparison: 07/31/2023 Bilateral MG screening mammo w CAD, [facility]. 08/20/2023 Left US breast workup limited LT, [facility]. 08/20/2023 Left MG 3D work up w/cad LT, [facility]. 09/19/2024 Left US breast limited LT, [facility]. 09/19/2024 Bilateral MG 3D diag mammo w/cad [facility], [facility]. Tissue Density: Left: There are scattered areas of fibroglandular density. Pathology Description: Location: 4 o'clock. Needle Type: Mammotome Cores: 2 Skin Nicks: 1 Gauge: 13 The procedure of ultrasound guided core biopsy was explained to the patient. Benefits, alternatives, and risks were discussed. An informed consent was then obtained. The patient was placed in supine positioning for imaging and for the procedure. The overlying skin was prepped and draped in usual sterile fashion. Lidocaine buffered with bicarbonate was used as anesthetic into the skin and subcutaneous tissue up to area of concern in the 4:00 left breast. A isaac was made with surgical scalpel. Under ultrasound guidance, a 12-gauge vacuum assisted biopsy gun device was used to obtain 2 core samples. Following this, a hydromark butterfly clip was left in lesion at 4:00. Attention was then turned to 3:00 lesion which appeared different morphology in today's exam. After injection of lidocaine the lesion was difficult to find possibly representing decompressed cyst. The procedure was aborted at that time. Attention on follow-up imaging for this lesion. The patient tolerated the procedure well without any immediate complication. The patient was kept in the radiology department for short stay after the procedure and then discharged home in stable condition. Postprocedure mammogram: The patient was transferred to mammography for physician ordered post procedure mammogram for clip placement verification. Post procedure mammogram demonstrates appropriate placement of clip in the lesion which is located posterior nipple on the CC view with clip 3.1 cm from the nipple on CC and 4.0 cm and LM view. Suboptimal technique and evaluation of the other lesions. Attention on short-term follow-up. Impression: 1. Successful, uncomplicated ultrasound guided core biopsy of area of concern in the left breast at 4:00. breast, full pathology results to follow. 2. Aborted left breast 3:00 lesion due to change morphology conspicuity on post lidocaine injection ultrasound imaging. Attention on short-term follow-up of this lesion with mammography. [facility], Workstation: [id number], 09/29/2024 2:41 PM. Pathology Results: Result: Benign, Fibroadenoma. Pathology and radiology were reviewed. Findings are concordant. LEFT BREAST, 4:00, ULTRASOUND GUIDED CORE BIOPSY: Benign stromal fibrosis with associated benign nodular/lobulated areas of terminal duct lobular units (see note). Notes The findings seen may represent a small and benign fibroadenoma. Fibrous scar is also a consideration. Examination is negative for malignancy. Overall Assessment: Benign Assessment: MG diagnostic mammo LT wo CAD. - Left: Benign, BI-RAD 2. Management: Diagnostic Mammogram of the left breast in 6 months. Electronically signed and approved by: Tadeo Moore DO
== END ==
LOC: RADUSWWP 12:08
PROVIDERS: ATTEND Surgery
DX: R92.8 Other abnormal and inconclusive findings on diagnostic imaging of breast (principal)
CPT/HCPCS: 88305; 77065; 19083; A4648

== ENCOUNTER → 2024-12-17 | Outpatient (CLI) | payer BC ==
--- NOTE | 2024-12-17 09:20 | XR ---
EXAMINATION TYPE: XR foot complete LT DATE OF EXAM: 12/17/2024 8:56 AM COMPARISON: None CLINICAL INDICATION: Female, 39 years old with history of PAIN IN LEFT FOOT M79.672; [facility], pain. LT 2 nd and 3rd digit pain after crushing injury. TECHNIQUE: 3 views FINDINGS: No acute fracture, subluxation, dislocation is seen. Particular attention to the second and third toe s. IMPRESSION: No acute osseous abnormality seen. [facility], Workstation: [id number], 12/17/2024 9:17 AM
== END | disposition home or self-care (01) ==
LOC: RADXRMAIN 08:34
PROVIDERS: ATTEND Family Medicine
DX: M79.672 Pain in left foot (principal); W23.0XXA Caught, crushed, jammed, or pinched between moving objects, initial encounter